=== PATIENT | female | born 1990 | race Caucasian/White ===

== ENCOUNTER 2018-06-14 13:00 | Observation (INO) | payer OTHER ==
[~2018-06-14] VITALS: Ht 142.2 cm; Wt 56.9 kg
[2018-06-14 14:10] VITALS: BP 105/64
== END 2018-06-14 16:55 | disposition home or self-care (01) ==
LOC: 4S 13:00
PROVIDERS: ADMIT Obstetrics & Gynecology; ATTEND Obstetrics & Gynecology
DX: O42.92 Full-term premature rupture of membranes, unspecified as to length of time between rupture and onset of labor (principal); O62.9 Abnormality of forces of labor, unspecified; O48.0 Post-term pregnancy; Z3A.40 40 weeks gestation of pregnancy
CPT/HCPCS: 36415; 59025; 76805; 89060; G0378